=== PATIENT | female | born 1995 | race Caucasian/White ===

== ENCOUNTER 2017-10-06 06:42 | Inpatient (IN) | payer OTHER ==
[2017-10-06] MEDS ORDERED: PITOCin/NS 20 UNIT/1000ML DRIP 20,000 MILLIUNITS/1,000 ML BAG IV ONE (07:51)
--- NOTE | 2017-10-06 08:48 | History and Physical Report ---
History of Present Illness Date of examination: 10/06/17 Date of admission: 10/06/17 07:21 Chief complaint: Painful contractions History of present illness: 22-year-old now at 39+1 weeks presents fully dilated and subsequently delivered, initially thought to be a drop-in patient. She's actually a [employer] patient. She does not speak [place] history from [place]. [place]. She delivered precipitously after admission to the room. 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 denies: smoking, alcohol abuse, prescription drug abuse, IV drug use - Obstetrical History Expected Date of Delivery: 10/12/17 Actual Gestation: 39 Week(s) 1 Day(s) : 2 Para: 2 Review of Systems Constitutional: no fever, no chills, no fatigue, no weakness Cardiovascular: no chest pain, no orthopnea, no syncope, no lightheadedness, no shortness of breath, no dyspnea on exertion, no high blood pressure Respiratory: no cough, no shortness of breath, no dyspnea on exertion, no respiratory infections Gastrointestinal: no abdominal pain, no nausea, no vomiting Genitourinary: contractions, no vaginal bleeding, no vaginal discharge, no leakage of fluid - Vital Signs Vital signs: Vital Signs Pulse BP 64 131/71 10/06/17 08:35 10/06/17 08:35 Temp Pulse Resp BP Pulse Ox 64 131/71 10/06/17 08:35 10/06/17 08:35 - Physical Exam Cardiovascular: Regular rate, Normal S1 Lungs: Positive: Clear to auscultation Abdomen: Positive: normal appearance, soft. Negative: distention, tenderness, guarding, rigidity Vulva: both: normal Vagina: Positive: normal moisture. Negative: discharge Uterus: Positive: other (Firm and well contracted) Adnexa: both: normal Extremities: Positive: normal Results All other labs normal. Assessment and Plan PPD# 0 s/p -Doing well P: -Routine care -Anticipate discharge in 24-48 hours - Patient Problems (1) Precipitate labor, delivered, current hospitalization Current Visit: Yes Status: Acute
[2017-10-06] MEDS ORDERED: TYLENOL PO PRN ×2 (08:51→10:00)
--- NOTE | 2017-10-06 08:51 | Procedure Note ---
OB Delivery Note - Delivery Date of Delivery: 10/06/17 Surgeon: NATHANIEL COLE Estimated blood loss: 200cc - Vaginal Delivery presentation: vertex Delivery position: OA Intrapartum events: precipitous labor- <3hr Delivery induction: none Delivery monitor: external FHT, external uterine Route of delivery: Delivery placenta: spontaneous Delivery cord: 3 umbilical vessels Episiotomy: none Delivery laceration: 2nd degree Delivery repair: vicryl Anesthesia: none - A at 1 minute: 8 at 5 minutes: 9 Infant Gender: Male (time of delivery was 7:54 AM, infant weight 7 lbs. 15 oz. or 3611 g)
[2017-10-06] MEDS ORDERED: TUCKS PAD TP PRN (10:00)
[2017-10-06] MEDS ORDERED: NORCO 5/325 PO PRN (10:00)
[2017-10-06] MEDS ORDERED: DULCOLAX PR PRN (10:00)
[2017-10-06] MEDS ORDERED: PITOCin/NS 20 UNIT/1000ML DRIP 20 UNITS/1,000 ML BAG IV SCH (10:00)
[2017-10-06] MEDS ORDERED: LANSINOH TP PRN (10:00)
[2017-10-06] MEDS ORDERED: PHENERGAN PR PRN (10:00)
[2017-10-06] MEDS ORDERED: BENADRYL PO PRN (10:00)
[2017-10-06] MEDS ORDERED: SODIUM CHLORIDE FLUSH SYRINGE 10 ML IV PRN (10:00)
[2017-10-06] MEDS ORDERED: METHERGINE IM ONE (10:00)
[2017-10-06] MEDS ORDERED: ZOFRAN IV PRN (10:00)
[2017-10-06] MEDS ORDERED: PRENATAL VITAMIN PO SCH (10:00)
[2017-10-06] MEDS ORDERED: PHENERGAN PO PRN (10:00)
[2017-10-06] MEDS ORDERED: LACTATED RINGERS 1,000 ML ONE (10:06)
[2017-10-06] MEDS ORDERED: CYTOTEC ONE (11:03)
[2017-10-06] MEDS ORDERED: CYTOTEC PR NR (11:05)
[2017-10-06 14:06] LABS: Amphetamine Screen,Urine PRESUMPTIVE NEGATIVE; Benzodiazepines Screen,Urine PRESUMPTIVE NEGATIVE; Cannabinoid Screen,Urine PRESUMPTIVE NEGATIVE; Cocaine Screen,Urine PRESUMPTIVE NEGATIVE; Methadone Screen,Urine PRESUMPTIVE NEGATIVE; Opiate Screen,Urine PRESUMPTIVE NEGATIVE
[2017-10-06 14:13] LABS: Basophils % (Auto) 0.4 % (0.0-1.8); Eosinophils # (Auto) 0.1 K/mm3 (0.0-0.4); Eosinophils % (Auto) 0.9 % (0.0-4.3); Hematocrit 33.3 % (30.3-42.9); Hemoglobin 10.5 gm/dl (10.1-14.3); Lymphocytes # (Auto) 2.8 K/mm3 (1.2-5.4); Lymphocytes % (Auto) 26.8 % (13.4-35.0); Mean Corpuscular HGB Conc 32 % (30-34); Mean Corpuscular Volume 75 fl (79-97); Monocytes # (Auto) 0.6 K/mm3 (0.0-0.8); Monocytes % (Auto) 5.4 % (0.0-7.3); Platelet Count 204 K/mm3 (140-440); Red Blood Count 4.42 M/mm3 (3.65-5.03)
[2017-10-06 14:18] LABS: Mean Corpuscular Hemoglobin 24 pg (28-32)
[2017-10-06] MEDS: MOTRIN PO SCH (18:51)
[2017-10-06] MEDS: FEOSOL PO SCH (21:13)
[2017-10-06] MEDS: METHERGINE PO SCH (21:14)
[2017-10-06 21:15] LABS: Hematocrit 28.9 % (30.3-42.9); Hemoglobin 9.1 gm/dl (10.1-14.3)
[2017-10-06] MEDS: COLACE PO SCH (21:15)
[2017-10-06] MEDS ORDERED: MILK OF MAGNESIA PO PRN (22:00)
[2017-10-07] MEDS: MOTRIN PO SCH ×5 (00:41→23:54)
[2017-10-07] MEDS ORDERED: BOOSTRIX IM ONE (06:00)
[2017-10-07] MEDS: METHERGINE PO SCH ×3 (06:02→21:34)
--- NOTE | 2017-10-07 08:18 | Progress Note ---
Assessment and Plan - Patient Problems (1) (normal spontaneous vaginal delivery) Onset Date: 10/07/17 Current Visit: Yes Status: Resolved Plan to address problem: A: S/P - PPD #1 Doing well Asymptomatic anemia - stable P: May go home tomorrow. Subjective - Subjective Date of service: 10/07/17 Principal diagnosis: s/p - PPD #1 Interval history: Pt is feeling well without complaints. Bleeding improved. Patient reports: appetite normal, voiding normally, pain well controlled, flatus , ambulating normally [place]: doing well, nursing well Objective - Vital Signs Latest vital signs: Vital Signs Temp Pulse Resp BP BP Pulse Ox 10/06/17 23:30 98.6 F 77 16 102/68 10/06/17 20:00 98.6 F 77 16 121/76 10/06/17 15:59 98.7 F 67 18 114/79 98 10/06/17 12:17 98.3 F 68 18 115/89 115/89 96 10/06/17 11:45 98.6 F 66 20 135/57 98 10/06/17 11:20 78 140/87 10/06/17 11:05 80 136/88 10/06/17 10:50 60 132/87 10/06/17 10:35 62 135/86 10/06/17 10:29 18 10/06/17 10:20 62 138/82 10/06/17 10:06 59 L 141/76 10/06/17 09:51 63 156/70 10/06/17 09:35 58 L 117/72 10/06/17 09:20 78 136/76 10/06/17 09:05 68 145/72 10/06/17 08:50 57 L 142/85 10/06/17 08:35 64 131/71 Intake and Output 10/06/17 10/07/17 10/07/17 22:59 06:59 14:59 Intake Total 420 200 Balance 420 200 Intake: Oral 120 Intake, Free Water 300 200 Other: Total, Intake Amount 120 # Voids Void 1 - Exam Breasts: Present: deferred Cardiovascular: Present: Regular rate Lungs: Present: Clear to auscultation Abdomen: Present: normal appearance, soft Uterus: Present: normal, firm, fundal height below umbilicus Extremities: Present: normal - Labs Labs: Abnormal lab results 10/06/17 10/06/17 Range/Units 07:30 20:54 Hgb 9.1 L (10.1-14.3) gm/dl Hct 28.9 L (30.3-42.9) % MCV 75 L (79-97) fl MCH 24 L (28-32) pg RDW 16.0 H (13.2-15.2) % Laboratory Tests 10/06/17 10/06/17 10/06/17 07:30 07:30 07:30 WBC 10.3 RBC 4.42 Hgb 10.5 Hct 33.3 MCV 75 L MCH 24 L MCHC 32 RDW 16.0 H Plt Count 204 Lymph % (Auto) 26.8 [place] % (Auto) 5.4 Eos % (Auto) 0.9 Baso % (Auto) 0.4 Lymph # 2.8 [place] # 0.6 Eos # 0.1 Baso # 0.0 Seg Neutrophils % 66.5 Seg Neutrophils # 6.9 Urine Opiates Screen Urine Methadone Screen Ur Barbiturates Screen Ur Phencyclidine Scrn Ur Amphetamines Screen U Benzodiazepines Scrn Urine Cocaine Screen U Marijuana (THC) Screen Drugs of Abuse Note Hep Bs Antigen Non-reactive HIV 1&2 Antibody Rapid HIV P24 Antigen Rubella IgG Antibody Immune Blood Type Antibody Screen 10/06/17 10/06/17 10/06/17 07:30 07:30 11:15 WBC RBC Hgb Hct MCV MCH MCHC RDW Plt Count Lymph % (Auto) [place] % (Auto) Eos % (Auto) Baso % (Auto) Lymph # [place] # Eos # Baso # Seg Neutrophils % Seg Neutrophils # Urine Opiates Screen Presumptive negative Urine Methadone Screen Presumptive negative Ur Barbiturates Screen Presumptive negative Ur Phencyclidine Scrn Presumptive negative Ur Amphetamines Screen Presumptive negative U Benzodiazepines Scrn Presumptive negative Urine Cocaine Screen Presumptive negative U Marijuana (THC) Screen Presumptive negative Drugs of Abuse Note Disclamer Hep Bs Antigen HIV 1&2 Antibody Rapid Non react HIV P24 Antigen Non react Rubella IgG Antibody Blood Type O POSITIVE Antibody Screen Negative 10/06/17 20:54 WBC RBC Hgb 9.1 L Hct 28.9 L MCV MCH MCHC RDW Plt Count Lymph % (Auto) [place] % (Auto) Eos % (Auto) Baso % (Auto) Lymph # [place] # Eos # Baso # Seg Neutrophils % Seg Neutrophils # Urine Opiates Screen Urine Methadone Screen Ur Barbiturates Screen Ur Phencyclidine Scrn Ur Amphetamines Screen U Benzodiazepines Scrn Urine Cocaine Screen U Marijuana (THC) Screen Drugs of Abuse Note Hep Bs Antigen HIV 1&2 Antibody Rapid HIV P24 Antigen Rubella IgG Antibody Blood Type Antibody Screen
--- NOTE | 2017-10-07 08:22 | Discharge Summary ---
Providers - Providers Date of Admission: 10/06/17 07:21 Date of discharge: 10/08/17 Attending physician: NATHANIEL COLE Primary care physician: NATHANIEL COLE Hospitalization Reason for admission: active labor, IUP at term Delivery: Episiotomy: none Laceration: 2nd degree Other procedures: none complications: none Discharge diagnosis: IUP at term delivered [place] baby: male Hospital course: Unremarkable. Condition at discharge: Good Disposition: DC-01 TO HOME OR SELFCARE - Discharge Diagnoses (1) (normal spontaneous vaginal delivery) Status: Resolved Plan - Discharge Medications Prescriptions: HYDROcodone/APAP 5-325 [[place] 5/325] 1 each PO Q6HR PRN #7 tablet PRN Reason: Pain Ibuprofen [Motrin 600 MG tab] 600 mg PO Q8H PRN #30 tablet PRN Reason: Pain Multivitamin with Iron [Multivitamins with Iron] 1 each PO DAILY #30 tablet - Provider Discharge Summary Activity: routine, no sex for 6 weeks, no heavy lifting 4 weeks, no strenuous exercise Diet: routine Instructions: routine Additional instructions: [] Smoking cessation referral if applicable(refer to patient education folder for contact #) [] Refer to [facility] Booklet Call your doctor immediately for: * Fever > 100.5 * Heavy vaginal bleeding ( >1 pad per hour) * Severe persistent headache * Shortness of breath * Reddened, hot, painful area to leg or breast * Drainage or odor from incision. * Keep incision clean and dry at all times and follow doctor's instructions regarding bathing/showering - Follow up plan Follow up: NATHANIEL COLE MD [Primary Care Provider] - 6 Weeks
[2017-10-07] MEDS: SENOKOT S PO SCH ×2 (09:40→21:38)
[2017-10-07] MEDS: FEOSOL PO SCH ×2 (09:40→21:34)
[2017-10-07] MEDS: COLACE PO SCH ×2 (09:40→21:34)
[2017-10-07] MEDS ORDERED: M-M-R II VACCINE SUB-Q ONE (11:00)
[2017-10-08] MEDS: MOTRIN PO SCH (05:25)
[2017-10-08] MEDS: METHERGINE PO SCH (05:26)
[2017-10-08 10:27] VITALS: BP 107/77
== END 2017-10-08 12:22 | disposition home or self-care (01) | DRG 775 ==
LOC: TRG 06:42 → LD 07:21 → OB 12:10
PROVIDERS: ADMIT Obstetrics & Gynecology Gynecology; ATTEND Obstetrics & Gynecology Gynecology
PROC: 10E0XZZ Delivery of Products of Conception, External Approach (ICD-10-PCS; principal; 2017-10-06)
PROC: 0KQM0ZZ Repair Perineum Muscle, Open Approach (ICD-10-PCS; 2017-10-06)
PROC: 3E0234Z Introduction of Serum, Toxoid and Vaccine into Muscle, Percutaneous Approach (ICD-10-PCS; 2017-10-07)
DX: O62.3 Precipitate labor (principal); O70.1 Second degree perineal laceration during delivery; O90.81 Anemia of the puerperium; D64.9 Anemia, unspecified; Z3A.39 39 weeks gestation of pregnancy; Z37.0 Single live birth; Z23 Encounter for immunization
CPT/HCPCS: 36415; 80307; 85014; 85018; 85025; 86592; 86706; 86762; 86850; 86900; 86901; 87806; 90471; 90715; 99211; A6250; G0463; J2210; J2590; J7120